=== PATIENT | female | born 1960 | race Caucasian/White ===

== ENCOUNTER 2018-03-09 14:02 | Inpatient (IN) ==
--- NOTE | 2018-03-09 17:51 | Internal Med History&Physical ---
Date of Encounter: 03/09/18 Time of Encounter: 17:46 Assessment and Plan (1) Status post revision of total replacement of right knee Current visit: Yes Status: Acute Patient is status post right knee revision arthroplasty by Dr. Gordon. She is 2 days postop. She thinks she is doing well. She has been able to ambulate with a walker. She is to use the CPM and ice pack. She is currently taking oxycodone 25 mg every 4 hours. She will have PT, OT, RT/full therapies and Dr. Murcia consultation. Currently she is medically stable. (2) Diabetes Current visit: Yes Status: Chronic Patient has diabetes chronically. Her most recent A1c is 7%. We will monitor blood sugars. 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 Currently blood pressure in the 152 range systolically. We will continue her current medications and monitor. Qualifiers: Hypertension type: essential hypertension Qualified Code(s): I10 - Essential (primary) hypertension (4) Degenerative disc disease, lumbar Current visit: Yes Status: Chronic Chronic degenerative disc disease in the lumbar area. She chronically uses oxycodone 30 mg 3 times a day. Previously she had not a lot of pump until it was tapered off. Right now she thinks her pain control is fairly good. (5) COPD (chronic obstructive pulmonary disease) Current visit: Yes Status: Chronic Chronic COPD and continued to smoke until the day she had surgery. She also has a history of asthma. She is maintained on Anoro daily. She has not been needing her albuterol or nebulizer treatments. Qualifiers: COPD type: emphysema Emphysema type: unspecified Qualified Code(s): J43.9 - Emphysema, unspecified (6) History of tobacco use Current visit: Yes Status: Chronic History of smoking 1-1/2 packs of cigarettes per day. She quit on day of surgery. She desires no medication for intervention or withdrawal at this time. (7) DVT prophylaxis Current visit: Yes Status: Acute The surgeon as ordered aspirin 325 twice a day for 42 days as DVT prophylaxis. She will also have ambulation as well as elastic stockings. Internal Medicine - H&P: HPI Chief complaint: "I am here for rehab after my knee replacement" Admitted From: Hospital to Hospital Transfer Plans for Post Hospital Care: Home History of present illness: Ms. Hahn is a 57 year old female with known history of COPD/asthma and tobacco use of 1 1/2 packs per day, spondylolisthesis, previous cervical and lumbar spine surgery, diabetes who on 03/07/18 had right knee revision arthroplasty by Dr. Gordon at [facility]. She did well postoperatively, has been ambulating with a walker and therapy. She is requiring oxycodone 25 mg every 4 hours for pain control. She has not smoked since her hospital admission and she has not had craving nor needed medication assistance. She lives in a 1 floor home with 3 steps into the home. There is one short step into the shower. She only has grab bars, shower seat etc. because of her previous surgical history. She denies any cardiac type chest pain. She denies any dyspnea or wheezing or shortness of breath. She has not been needing nebulizer or albuterol treatments because she has stopped smoking when she got admitted to the hospital. She uses her Anora for maintenance. She states her pain has been under fair control. She has been using 25 mg of oxycodone every 4 hours. Previously she was on an implanted pump with the allotted. She was tapered off that and as an outpatient has been taking oxycodone 30 mg 3 times a day for chronic back pain. Past Med Surg Social Fam HX - Past Medical History Medical history: asthma, COPD, diabetes, fibromyalgia, hyperlipidemia, hypertension, liver disease (History of fatty liver) Additional medical history: LUMBAR DDD. DJD. CHRONIC FATIGUE. EXERTIONAL DYSPNEA. CERVICAL/LUMBAR RADICULOPATHY. CHRONIC BACK PAIN. CERVICAL/LUMBAR POST LAMINECTOMY SYNDROME. CERVICAL SPINAL STENOSIS. FATTY LIVER. MULTILEVEL SPONDYLOSIS. CATARACTS. LUE LYMPHEDEMA. FIBROMYALGIA. MORBID OBESITY. GERD. ASTHMA. SMOKER. HEART CATH. SLEEP APNEA Psychiatric history: no psych history - Past Surgical History Surgical History: , orthopedic, other, other Additional surgical history: LUMBAR FUSION 2010. CERVICAL FUSION/LAMINECTOMY . BCTR 2001. RIGHT KNEE SCOPE 2006. TUBAL 1989. CARDIAC CATH 2010. ADOLFO CATARACT SX 2012. COLONOSCOPY W/POLYPECTOMY 2011. RTKR 06/2013. CYSTOSCOPY W/BLADDER BOTOX INJECTION @[facility] W/DR EDWARDS - Social History Smoking Status: Current every day smoker (Patient smokes 1-1/2 pack of cigarettes per day. She quit on day of surgery) Smokeless Tobacco Status: No Alcohol use: none Drug use: none Occupational status: unemployed Current living situation: Home, With Family Activity Level: Uses cane/walker Recent Out of Country Travel Within the Last 8 Weeks: No Exposure or Possible Exposure to Illness During Travel: No - Family History Mother Living Status: Cause of : History of hypertension and multiple CVAs Father Living Status: Cause of : History of COPD and hypertension Internal Medicine - H&P: Meds Albuterol Sulfate [Albuterol Inhaler] 2 puff IH TID PRN 08/27/16 [History] Lansoprazole [Prevacid] 30 mg PO HS 08/27/16 [History] Pravastatin Sodium [Pravachol] 80 mg PO HS 08/27/16 [History] Estradiol [Estrace] 1 mg PO DAILY 12/01/17 [History] Losartan/Hydrochlorothiazide [Losartan-Hctz 50-12.5 mg Tab] 50 mg PO DAILY 12/01 [History] Medroxyprogesterone Acetate [Provera] 5 mg PO DAILY 12/01/17 [History] Metformin HCl 500 mg PO BID 02/20/18 [History] Aspirin [Ecotrin] 325 mg PO BID 03/09/18 [History] Ipratropium/Albuterol Neb [Duoneb] 3 ml IH Q6HR 03/09/18 [History] Oxycodone HCl 25 mg PO Q4HWA 03/09/18 [History] Umeclidinium Brm/Vilanterol Tr [Anoro Ellipta 62.5-25 Mcg INH] 1 each IH DAILY 03/09/18 [History] 3 Allergy/AdvReac Type Severity Reaction Status Date / Time amlodipine [From [facility]] Allergy Swelling Verified 02/20/18 18:35 of Lip/Tongue/Throat lisinopril Allergy Cough Verified 02/20/18 18:35 morphine Allergy Nausea Verified 02/20/18 18:35 - Constitutional Constitutional: no chills, no fever(s), no falls, no night sweats - EENT Eyes: no change in vision Ears: decreased hearing (Decreased hearing bilaterally. She feels that her ears are popping from pressure) Nose, mouth and throat: other (She has a full set of dentures), no change in voice, no sinus pressure, no sore throat - Cardiovascular Cardiovascular ROS IM: no chest pain, no dyspnea, no irregular heart rhythm, no lightheadedness - Respiratory Respiratory: no cough, no dyspnea, no dyspnea on exertion, no chest congestion - Gastrointestinal Gastrointestinal: constipation (She states she chronically has "constipation". She has a small bowel movement about every 3 days. This is despite having tried stool softeners and laxatives.), no change in bowel habits, no hematemesis , no melena, no nausea, no vomiting - Genitourinary Genitourinary: urinary frequency (Patient chronically has urinary frequency and is due to have Botox injections but was canceled because of her surgery), no dysuria, no flank pain Menstruation: post menopausal (Patient is undergoing a workup of postmenopausal vaginal spotting with Dr. Penaloza) - Musculoskeletal Musculoskeletal ROS IM: muscle weakness (She states she cannot raise her right thigh well since her surgery. Otherwise she thinks she is doing well with her postop care. She has been able to be ambulating with a walker) - Integumentary Integumentary IM: no new lesions, no rash - Neurological Neurological ROS: no frequent falls, no loss of vision, no tremor(s), no vertigo - Psychiatric Psychiatric: depression (She chronically has some depression and down times because of her chronic pain. She is not suicidal.) - Allergic/Immunologic Allergic/Immunologic: no uticaria, no wheezing - Constitutional Vitals: Temp Pulse Resp BP Pulse Ox 98.4 F 88 18 152/79 97 03/09/18 16:27 03/09/18 16:27 03/09/18 16:27 03/09/18 16:27 03/09/18 16:42 General appearance: Present: A&O X 3, morbidly obese, answers questions appropriately - Head Head exam: Present: atraumatic - Eye Eye exam: Present: EOMI, normal appearance, PERRL Pupils: Present: PERRL - ENT ENT exam: Present: mucous membranes moist, normal oropharynx (Except edentulous and has full set of dentures), TM's normal bilaterally - Neck Neck exam general surgery: Absent: lymphadenopathy, tenderness, thyromegaly - Respiratory Respiratory exam: Present: decreased breath sounds (With slight scattered end expiratory wheezes throughout . No respiratory distress) - Cardiovascular Cardiovascular exam: Present: RRR, +S1, +S2 - GI/Abdominal GI/Abdominal exam: Present: soft. Absent: mass, tenderness Additional comments: Very obese which limits her examination. No guarding or rebound or rigidity. - Extremities Exam Additional comments: Right knee is wrapped with an Cortez wrap. Dressing is intact with about one half with dried blood. Clear plastic overlay without drainage. There is no significant bruising. It is not red or hot. In bed I am able to flex the knee to approximately 80 degrees. There is no calf tenderness. There is appropriate slight induration of the thigh skin in the lateral and posterior lateral aspect. - Incison Comments: Midline dressing is 50% with dried blood. Clear overlie dressing is intact without drainage. - Neurological Exam Neurological exam: Present: CN II-XII intact, oriented X3, no focal deficits ( Except I cannot fully examine the right lower extremity for strength). Absent: facial droop - Psychiatric Psychiatric exam: Present: normal mood - VTE Documentation of Mechanical Device: Graduated compression elastic hosiery
[2018-03-09] MEDS: *HR* OxyCODONE Immed Rel 5 MG TABLET PO SCH ×2 (19:43→23:54)
[2018-03-09] MEDS: *HR* Metformin 500 MG TABLET PO SCH (19:44)
[2018-03-09] MEDS: Aspirin Enteric Coated 325 MG Tablet PO SCH (19:44)
[2018-03-09] MEDS: Ipratropium/Albuterol Neb 3 ML IH SCH (23:03)
[2018-03-10] MEDS ORDERED: cloNIDine HCl 0.1 MG TABLET PO PRN (03:40)
[2018-03-10] MEDS: *HR* OxyCODONE Immed Rel 5 MG TABLET PO SCH ×2 (03:57→08:43)
[2018-03-10] MEDS: Ipratropium/Albuterol Neb 3 ML IH SCH (05:58)
[2018-03-10 06:40] VITALS: BP 152/90
--- NOTE | 2018-03-10 07:05 | Internal Med Progress Note ---
Date of Encounter: 03/10/18 Time of Encounter: 07:13 - Assessment and plan (1) Status post revision of total replacement of right knee Current Visit: Yes Status: Acute Assessment and plan: Nurses report that she is doing very well. Pain control appears to be adequate. Patient is eager to be going home soon. She starts therapies today. (2) Diabetes Current Visit: Yes Status: Chronic Assessment and plan: Sugars under adequate control. 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 She has no chest pain or dyspnea. No neurological changes. Her blood pressure is hard to control chronically Qualifiers: Hypertension type: essential hypertension Qualified Code(s): I10 - Essential (primary) hypertension (4) Degenerative disc disease, lumbar Current Visit: Yes Status: Chronic (5) COPD (chronic obstructive pulmonary disease) Current Visit: Yes Status: Chronic Assessment and plan: Lungs are clear and breathing is easy since she is not smoking Qualifiers: COPD type: emphysema Emphysema type: unspecified Qualified Code(s): J43.9 - Emphysema, unspecified (6) History of tobacco use Current Visit: Yes Status: Chronic (7) DVT prophylaxis Current Visit: Yes Status: Acute - Subjective Interval history: Patient has no particular complaints this morning except her legs feel "sore" and she wants to be up and moving more. She says she is not used to lying in bed this long. She denies any cardiac or respiratory symptoms. She states the pain medication is adequate. In the middle of the night her blood pressure was elevated into the 170s systolic and she was given a clonidine. - Constitutional Vitals: Temp Pulse Resp BP Pulse Ox 97.9 F 84 18 152/90 97 03/10/18 06:39 03/10/18 06:39 03/10/18 06:39 03/10/18 06:39 03/10/18 06:39 General appearance: Present: A&O X 3, morbidly obese, answers questions appropriately - Respiratory Respiratory exam: Present: CTAB - Cardiovascular Cardiovascular exam: Present: RRR, +S1, +S2 - GI/Abdominal GI/Abdominal exam: Present: soft. Absent: tenderness - Extremities Exam Additional comments: Lightly touching her tibial areas she has dysesthesia bilaterally, left worse than the right. She thinks it may be from the stockings being too tight. Right third extremity has appropriate tenderness of the knee and she is using her polar pack. Right upper thigh has appropriate induration and nontender. - Incison Comments: I did not evaluate incision today - VTE Documentation of Mechanical Device: Graduated compression elastic hosiery Consult Discharge Plan - Plan Referrals: Mason Farley MD [Primary Care Provider] -
[2018-03-10] MEDS: Aspirin Enteric Coated 325 MG Tablet PO SCH (08:43)
[2018-03-10] MEDS: *HR* Metformin 500 MG TABLET PO SCH (08:43)
[2018-03-10] MEDS ORDERED: Losartan/HCTZ 50-12.5 TABLET PO SCH (09:00)
--- NOTE | 2018-03-10 10:26 | Discharge Summary ---
- NOTES TO OUTPATIENT PROVIDER Notes to Outpatient Provider: #1. Outpatient physical therapy to be arranged. #2. Follow-up with the surgeon as planned Orders not resulted at time of discharge: Pending orders 03/11/18 04:00 BMP [Basic Metabolic Panel] AM 0400 Complete Blood Count [HEME] AM 0400 Date of Encounter: 03/10/18 Time of Encounter: 10:23 - Discharge Diagnosis (1) Status post revision of total replacement of right knee Priority: Primary Status: Acute Comments: Patient is status post right knee revision/total replacement by Dr. Clay. She was transferred to our unit yesterday. She was evaluated by therapists today and they feel that she is capable of doing outpatient physical therapy and not requiring any additional inpatient therapy. Patient desires to go home. She was discharged to home with follow-up outpatient therapy arranged (2) Diabetes Priority: Secondary Status: Chronic Comments: Her diabetes has been under good control. Her last glycohemoglobin was 7.0%. 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 Generally it is hard to control as an outpatient. Continue with the same medication. Will monitor as an outpatient and adjust accordingly. Qualifiers: Hypertension type: essential hypertension Qualified Code(s): I10 - Essential (primary) hypertension (4) Degenerative disc disease, lumbar Priority: Secondary Status: Chronic Comments: She has chronic back pain and typically uses oxycodone 30 mg 3 times a day. Postoperatively she is using oxycodone 25 mg every 4 hours when necessary for pain. His outpatient we will adjust her medication as she tapers down from the post op course (5) COPD (chronic obstructive pulmonary disease) Priority: Secondary Status: Chronic Comments: Her lungs being clear and she is done well since she has stopped smoking as of the day of surgery. I encouraged her to not resume smoking. She continues with her inhaler as well as nebulizer treatments as needed Qualifiers: COPD type: emphysema Emphysema type: unspecified Qualified Code(s): J43.9 - Emphysema, unspecified (6) History of tobacco use Priority: Secondary Status: Chronic Comments: One to one and half packs of cigarettes per day chronically. She stopped on day of surgery. I encouraged her to not resume. (7) DVT prophylaxis Priority: Secondary Status: Acute Comments: DVT prophylaxis is aspirin 325 twice a day as per the surgeon for 42 days. Hospital course: Ms. Hahn is a 57 year old female status post right knee revision/total replacement was admitted to the [facility] rehabilitation unit last evening. She was doing so well that the therapists feel she is safe to be discharged to home and continue as an outpatient. Please see the diagnoses as above. Discharge discussed with: patient Time spent discussing smoking cessation with patient: 3 to 10 minutes - Time Spent with Patient Total time spent providing and/or coordinating discharge services: - Discharge Medications Home Medications: Albuterol Sulfate [Albuterol Inhaler] 2 puff IH TID PRN 08/27/16 [History] Lansoprazole [Prevacid] 30 mg PO HS 08/27/16 [History] Pravastatin Sodium [Pravachol] 80 mg PO HS 08/27/16 [History] Estradiol [Estrace] 1 mg PO DAILY 12/01/17 [History] Losartan/Hydrochlorothiazide [Losartan-Hctz 50-12.5 mg Tab] 50 mg PO DAILY 12/01 [History] Medroxyprogesterone Acetate [Provera] 5 mg PO DAILY 12/01/17 [History] Metformin HCl 500 mg PO BID 02/20/18 [History] Aspirin [Ecotrin] 325 mg PO BID 03/09/18 [History] Ipratropium/Albuterol Neb [Duoneb] 3 ml IH Q6HR 03/09/18 [History] Oxycodone HCl 25 mg PO Q4HWA 03/09/18 [History] Umeclidinium Brm/Vilanterol Tr [Anoro Ellipta 62.5-25 Mcg INH] 1 each IH DAILY 03/09/18 [History] Allergies/Adverse Reactions: 3 Allergy/AdvReac Type Severity Reaction Status Date / Time amlodipine [From [facility]] Allergy Swelling Verified 02/20/18 18:35 of Lip/Tongue/Throat lisinopril Allergy Cough Verified 02/20/18 18:35 morphine Allergy Nausea Verified 02/20/18 18:35 Date of admission: 03/09/18 16:12 Primary care physician: Mason Albert MD Consults: 03/09/18 16:37 Consult to Hims Coder [CONS] Routine Reason for SW Consult: Rehab patient 03/09/18 16:38 Consult to Occupational Therapy [CONS] Routine Comment: Evaluate, develop and implement POC Reason for Consult: post op right knee sx Does patient have active BEDREST order?: No Is patient medically & hemodynamically stable?: Yes Patient assessed for mobility or mobilized this visit?: Yes Consult to Physical Therapy [CONS] Routine Comment: Evaluate, develop and implement POC Reason for Consult: post right knee sx Does patient have active BEDREST order?: No Is patient medically & hemodynamically stable?: Yes Patient assessed for mobility or mobilized this visit?: Yes 03/09/18 19:38 Consult to Physical Medicine/Rehab [CONS] Routine Reason for Consult: rehab consult tkr Call Completed: Yes Consult to Recreational Therapy [CONS] Routine Comment: Discharging clinician: Mason Albert Anticipated date of discharge: 03/10/18 - Constitutional Vitals: Temp Pulse Resp BP Pulse Ox 97.9 F 84 18 152/90 97 03/10/18 06:39 03/10/18 06:39 03/10/18 06:39 03/10/18 06:39 03/10/18 06:39 General appearance: Present: A&O X 3, morbidly obese, answers questions appropriately - Respiratory Respiratory exam: Present: CTAB - Cardiovascular Cardiovascular exam: Present: RRR, +S1, +S2 - GI/Abdominal GI/Abdominal exam: Present: soft. Absent: tenderness - Extremities Exam Additional comments: Right lower extremity has dressing intact and Cortez wrap present. Patient has been using the cold pack. - Patient Status Disposition: Home, Self-Care Condition: Good Functional capacity at discharge: uses cane/walker Overall status at discharge: patient is not back to baseline - Discharge Instructions Instructions: How to Stop Smoking (DC), How to Check Your Blood Sugar (DC), Total Knee Replacement, Stoker Erector And Servicer (GEN) Follow Up With: ashely clay [Other] - 03/22/18 10:00 am Mason Albert MD [Primary Care Provider] - 03/15/18 6:30 pm (follow up appointment with Dr. Albert) - Diet and Activity Activity: ambulate only with your walker Diet: diabetic diet - VTE Documentation of Mechanical Device: Graduated compression elastic hosiery
== END 2018-03-10 12:00 | disposition home or self-care (01) | DRG 560 ==
LOC: INPGRE 16:12
PROVIDERS: ADMIT Family Medicine; ATTEND Family Medicine